=== PATIENT | male | born 1990 | race Caucasian/White ===

== ENCOUNTER 2017-09-14 17:03 | Emergency (ER) | payer OTHER ==
[~2017-09-14] VITALS: Ht 170.2 cm; Wt 76.0 kg
[2017-09-14 17:20] VITALS: TEMP 37.2; Ht 170.2 cm; Wt 76.0 kg
--- NOTE | 2017-09-14 18:20 | DIAGNOSTIC IMAGING REPORT ---
CHEST ONE VIEW PORTABLE CLINICAL HISTORY: Chest pain. COMPARISON STUDY: No previous studies for comparison. FINDINGS: Lung volumes are normal. Lungs are clear. No pneumothorax or pleural effusion is noted. Cardiac size is normal. Mediastinal contours are normal. There may be an old mid shaft fracture of the right clavicle. IMPRESSION: No acute cardiopulmonary findings. Electronically signed by: Sergio Iniguez M.D. 09/14/2017 6:18 PM Dictated Date/Time: 09/14/2017 6:17 PM
[2017-09-14 18:48] LABS: BASO % 0.4 %; BASO ABS # 0.02 K/uL (0-0.2); EOS % 0.2 %; EOS ABS # 0.01 K/uL (0-0.5); HEMOGLOBIN 16.5 g/dL (14.0-18.0); IG# 0.01 K/uL (0.00-0.02); LYMPH % 28.8 %; LYMPH ABS # 1.62 K/uL (1.2-3.4); MEAN CELL VOLUME 87.5 fL (80-100); MEAN CORPUSCULAR HEMOGLOBIN 32.1 pg (25-34); MEAN CORPUSCULAR HGB CONC 36.7 g/dl (32-36); MONO % 5.3 %; NEUT % 65.1 %; NEUT ABS # 3.67 K/uL (1.4-6.5); PLATELET COUNT 180 K/uL (130-400); RED CELL DISTRIBUTION WIDTH SD 38.1 fL (36.4-46.3); WHITE BLOOD COUNT 5.63 K/uL (4.8-10.8)
[2017-09-14 18:52] VITALS: O2SAT 99
[2017-09-14 19:10] LABS: ALBUMIN 4.6 gm/dl (3.4-5.0); ALT/SGPT 46 U/L (12-78); AST/SGOT 30 U/L (15-37); BLOOD UREA NITROGEN 13 mg/dl (7-18); CALCIUM 9.3 mg/dl (8.5-10.1); CARBON DIOXIDE 27 mmol/L (21-32); GLUCOSE 96 mg/dl (70-99); LIPASE 186 U/L (73-393); POTASSIUM 3.7 mmol/L (3.5-5.1); SODIUM 139 mmol/L (136-145)
[2017-09-14 19:16] LABS: ALKALINE PHOSPHATASE 79 U/L (45-117); CKMB 2.1 ng/ml (0.5-3.6); TOTAL PROTEIN 7.9 gm/dl (6.4-8.2)
[2017-09-14 19:44] VITALS: BP 126/76; PULSE 86; O2SAT 98
--- NOTE | 2017-09-19 09:46 | EMERGENCY ROOM VISIT NOTE ---
History Report prepared by Jon: Tiesha Camilo Under the Supervision of: Dr. Conrad Carl M.D. First contact with patient: 17:31 Chief Complaint: ABNORMAL DIAGNOSTIC TESTING Stated Complaint: ABNORMAL EKG-REF BY History of Present Illness The patient is a 26 year old male who presents to the Emergency Room with complaints of intermittent heart palpations beginning two weeks ago. Just prior to arrival the patient was at his PCP, Dr. Laureano's office for anxiety, difficulty sleeping, and heart palpations. While at his PCPs office, the patient had an EKG. The patient was referred to the ED for an "abnormal EKG". The patient reports he works out about 5 times a week. He denies any chest pain shortness of breath. The patient denies any chest pain when he works out. The patient reports his heart palpitations are most present when he feels anxious. The patient is not on any daily medications. This afternoon, the patient was prescribed medication for his anxiety. He denies taking any of his anxiety medication yet. The patient denies any suicidal ideations. He is graduating from [employer] in October. The patient does not want to talked to a counselor. Source of History: patient Onset: two weeks ago Position: other (generalized) Quality: other (palpitations) Modifying Factors (Worsening): other (anxiety) Associated Symptoms: No chest pain, No SOB Review of Systems See HPI for pertinent positives & negatives. A total of 10 systems reviewed and were otherwise negative. Past Medical & Surgical Medical Problems: (1) No Known Active Medical Problems Family History FH: diabetes mellitus FH: hypertension Heart disease Social History Smoking Status: Never Smoker Smokeless Tobacco Use: No Alcohol Use: occasionally Drug Use: none Housing Status: lives with family Occupation Status: student Current/Historical Medications No Active Prescriptions or Reported Meds Allergies Coded Allergies: Cetirizine (Verified Allergy, Unknown, Urine retention, 09/14/17) Physical Exam Vital Signs Date Time Temp Pulse Resp B/P (MAP) Pulse Ox O2 Delivery O2 Flow Rate FiO2 09/14/17 19:44 86 20 126/76 98 09/14/17 18:52 99 Room Air 09/14/17 18:52 99 Room Air 09/14/17 18:38 88 16 119/80 99 09/14/17 18:33 85 17 09/14/17 18:28 80 18 97 09/14/17 18:23 82 22 97 09/14/17 18:18 84 17 97 09/14/17 18:13 86 17 97 09/14/17 18:08 91 22 96 09/14/17 18:03 88 17 97 09/14/17 17:58 87 17 97 09/14/17 17:53 87 18 96 09/14/17 17:49 96 09/14/17 17:48 88 16 97 09/14/17 17:20 37.2 92 20 136/83 97 Room Air Physical Exam GENERAL: Awake, alert, well-appearing, in no acute distress HENT: Normocephalic, atraumatic. Oropharynx unremarkable. EYES: Normal conjunctiva. Sclera non-icteric. NECK: Supple. No nuchal rigidity. FROM. No JVD. RESPIRATORY: Clear to auscultation. CARDIAC: Regular rate, normal rhythm. Extremities warm and well perfused. Pulses equal. ABDOMEN: Soft, non-distended. No tenderness to palpation. No rebound or guarding. No masses. RECTAL: Deferred. MUSCULOSKELETAL: Chest examination reveals no tenderness. The back is symmetrical on inspection without obvious abnormality. There is no CVA tenderness to palpation. No joint edema. LOWER EXTREMITIES: Calves are equal size bilaterally and non-tender. No edema. No discoloration. NEURO: Normal sensorium. No sensory or motor deficits noted. SKIN: No rash or jaundice noted. Medical Decision & Procedures ER Provider Diagnostic Interpretation: Radiology results as stated below per my review and radiologist interpretation: CHEST ONE VIEW PORTABLE FINDINGS: Lung volumes are normal. Lungs are clear. No pneumothorax or pleural effusion is noted. Cardiac size is normal. Mediastinal contours are normal. There may be an old mid shaft fracture of the right clavicle. IMPRESSION: No acute cardiopulmonary findings. Electronically signed by: Sergio Iniguez M.D. Laboratory Results 09/14/17 18:30 Red Blood Count 5.14, Mean Corpuscular Volume 87.5, Mean Corpuscular Hemoglobin 32.1, Mean Corpuscular Hemoglobin Concent 36.7, Mean Platelet Volume 10.0, Neutrophils (%) (Auto) 65.1, Lymphocytes (%) (Auto) 28.8, Monocytes (%) (Auto) 5.3, Eosinophils (%) (Auto) 0.2, Basophils (%) (Auto) 0.4, Neutrophils # (Auto) 3.67, Lymphocytes # (Auto) 1.62, Monocytes # (Auto) 0.30, Eosinophils # (Auto) 0.01, Basophils # (Auto) 0.02 09/14/17 18:30 Test 09/14/17 18:30 White Blood Count 5.63 K/uL (4.8-10.8) Red Blood Count 5.14 M/uL (4.7-6.1) Hemoglobin 16.5 g/dL (14.0-18.0) Hematocrit 45.0 % (42-52) Mean Corpuscular Volume 87.5 fL (80-100) Mean Corpuscular Hemoglobin 32.1 pg (25-34) Mean Corpuscular Hemoglobin Concent 36.7 g/dl (32-36) Platelet Count 180 K/uL (130-400) Mean Platelet Volume 10.0 fL (7.4-10.4) Neutrophils (%) (Auto) 65.1 % Lymphocytes (%) (Auto) 28.8 % Monocytes (%) (Auto) 5.3 % Eosinophils (%) (Auto) 0.2 % Basophils (%) (Auto) 0.4 % Neutrophils # (Auto) 3.67 K/uL (1.4-6.5) Lymphocytes # (Auto) 1.62 K/uL (1.2-3.4) Monocytes # (Auto) 0.30 K/uL (0.11-0.59) Eosinophils # (Auto) 0.01 K/uL (0-0.5) Basophils # (Auto) 0.02 K/uL (0-0.2) RDW Standard Deviation 38.1 fL (36.4-46.3) RDW Coefficient of Variation 12.0 % (11.5-14.5) Immature Granulocyte % (Auto) 0.2 % Immature Granulocyte # (Auto) 0.01 K/uL (0.00-0.02) Anion Gap 6.0 mmol/L (3-11) Est Creatinine Clear Calc Drug Dose 118.4 ml/min Estimated GFR () 138.1 Estimated GFR (Non- 119.1 BUN/Creatinine Ratio 14.0 (10-20) Calcium Level 9.3 mg/dl (8.5-10.1) Total Bilirubin 0.6 mg/dl (0.2-1) Direct Bilirubin 0.1 mg/dl (0-0.2) Aspartate Amino Transf (AST/SGOT) 30 U/L (15-37) Alanine Aminotransferase (ALT/SGPT) 46 U/L (12-78) Alkaline Phosphatase 79 U/L (45-117) Total Creatine Kinase 188 U/L (39-308) Creatine Kinase MB 2.1 ng/ml (0.5-3.6) Creatine Kinase MB Ratio 1.1 (0-3.0) Troponin I < 0.015 ng/ml (0-0.045) Total Protein 7.9 gm/dl (6.4-8.2) Albumin 4.6 gm/dl (3.4-5.0) Lipase 186 U/L (73-393) Labs reviewed by ED physician. ECG Per My Interpretation Indication: palpitations Rate (beats per minute): 88 Rhythm: normal sinus Findings: T-wave inversion (Inferior), other (normal axis, no ST elevation or depression) ED Course 173: Past medical records reviewed. The patient was evaluated in room B6. A complete history and physical examination was performed. Medical Decision Differential diagnosis: Etiologies such as premature contractions, electrolyte abnormality, cardiac dysrhythmia, thyroid dysfunction, pulmonary embolism, infection, gastrointestinal, as well as others were entertained. This is a 26-year-old male who presents the emergency department over concerns he has a normal abnormal EKG. Upon arrival to The emergency department the patient does not have any elevation of his ST elevations or depressions. I will note that the patient is a long distance runner and has not experienced any chest pain or shortness of breath when running. The patient was placed on a diagnostic cardiac sonographer and during the entire time he was here in the emergency department at no time did he experience the palpitations. Based on this finding I felt that the patient could be sent over to cardio physio lab to have a Holter monitor placed. Medication Reconcilliation Current Medication List: was personally reviewed by me Blood Pressure Screening Patient's blood pressure: Normal blood pressure Impression Primary Impression: Palpitations Scribe Attestation The scribe's documentation has been prepared under my direction and personally reviewed by me in its entirety. I confirm that the note above accurately reflects all work, treatment, procedures, and medical decision making performed by me. Departure Information Dispostion Home / Self-Care Prescriptions No Active Prescriptions or Reported Meds Referrals Jenni Kumar CRNP (PCP) Forms HOME CARE DOCUMENTATION FORM, IMPORTANT VISIT INFORMATION, WORK / SCHOOL INSTRUCTIONS Patient Instructions ED Palpitations, Heart Palpitations, My [facility] Additional Instructions Follow up with Dr Soria's office Obtain Holter monitor from Cardiopulmonary lab You have been examined and treated today on an emergency basis only. This is not a substitute for, or an effort to provide, complete comprehensive medical care. It is impossible to recognize and treat all injuries or illnesses in a single emergency department visit. It is therefore important that you follow up closely with your PCP. Call as soon as possible for an appointment. Thank you for your time and consideration. I look forward to speaking with you again soon. Please don't hesitate to call us if you have any questions.
== END 2017-09-14 19:46 | disposition home or self-care (01) ==
LOC: C.EDB 17:04
DX: R00.2 Palpitations (principal); Z83.3 Family history of diabetes mellitus; Z82.49 Family history of ischemic heart disease and other diseases of the circulatory system; Z88.8 Allergy status to other drugs, medicaments and biological substances